=== PATIENT | female | born 1995 | race Two or more races ===

== ENCOUNTER 2018-08-26 22:07 | Observation (INO) | payer MEDICAID ==
[2018-08-26] MEDS ORDERED: IV RINGERS,LACTATED 1000ML 1,000 ML IV PRN (22:15)
[2018-08-26 22:37] LABS: BILIRUBIN,URINE NEGATIVE (NEG); CLARITY,URINE CLEAR; COLOR,URINE YELLOW; NITRITE,URINE NEGATIVE (NEG); PH,URINE 6.5; PROTEIN,URINE NEGATIVE (NEG-TRACE); UROBILINOGEN,URINE 0.2 mg/dL (0.2 mg/dL)
[2018-08-26 22:43] LABS: AMPHETAMINE/METHAMPHETAMINE NEG (NEG); BARBITURATES NEG (NEG); BENZODIAZEPINES NEG (NEG); CANNABINOIDS NEG (NEG); COCAINE NEG (NEG); METHADONE NEG (NEG); OPIATES NEG (NEG); PHENCYCLIDINE NEG (NEG)
[2018-08-26 22:55] LABS: BACTERIA,URINE MANY /HPF (0-FEW); SQUAMOUS EPITHELIAL CELL,UR MANY /LPF; WBC,URINE RARE /HPF (0-4)
[2018-08-26 23:05] LABS: AMNIO PT NEGATIVE
== END 2018-08-26 23:30 | disposition home or self-care (01) ==
LOC: 3 SO LND 22:07
PROVIDERS: ADMIT Specialist; ATTEND Specialist
DX: O26.893 Other specified pregnancy related conditions, third trimester (principal); R10.9 Unspecified abdominal pain; N89.8 Other specified noninflammatory disorders of vagina; Z3A.34 34 weeks gestation of pregnancy
CPT/HCPCS: 80307; 81001; 84112; G0379; 36415; 87086; 87653